=== PATIENT | male | born 1970 | race African-American/Black ===

== ENCOUNTER 2018-11-15 18:46 | Emergency (ER) | payer BC ==
[2018-11-15] MEDS: ONDANSETRON 4 MG INJ IV (19:38)
[2018-11-15] MEDS: SOD CHLORIDE 0.9% 1,000 ML IV (19:39)
[2018-11-15] MEDS: HYDROmorphONE 1 MG/ML SYG IV (19:39)
[2018-11-15 19:41] LABS: ADD MAN DIFF? NO
[2018-11-15 19:47] LABS: BASOPHILS % 0.6 % (0.0-2.0); EOSINOPHILS % 0.9 % (0.0-7.0); HEMATOCRIT 38.5 % (42.0-52.0); HEMOGLOBIN 12.9 g/dl (14.0-18.0); LYMPHOCYTES # 1.6 10^3/ul (0.8-2.9); LYMPHOCYTES % 46.8 % (15.0-51.0); MEAN CORPUSCULAR HEMOGLOBIN 29.1 pg (29.0-33.0); MEAN CORPUSCULAR HGB CONC 33.5 g/dl (32.0-37.0); MEAN CORPUSCULAR VOLUME 86.9 fl (82.0-101.0); MEAN PLATELET VOLUME 9.4 fl (7.4-10.4); MONOCYTE # 0.4 10^3/ul (0.3-0.9); MONOCYTES % 11.8 % (0.0-11.0); NEUTROPHIL # 1.3 10^3/ul (1.6-7.5); NEUTROPHILS % 39.6 % (39.0-77.0); PLATELET COUNT 240 10^3/UL (140-415); RED BLOOD COUNT 4.43 10^6/ul (4.70-6.10)
[2018-11-15 19:47] LABS: WHITE BLOOD COUNT 3.3 10^3/ul (4.8-10.8)
[2018-11-15 20:09] LABS: ALANINE AMINOTRANSFERASE 232 IU/L (13-69); ALBUMIN 3.5 g/dl (3.3-4.9); ALBUMIN/GLOBULIN RATIO 1.06; ALKALINE PHOSPHATASE 133 IU/L (42-121); ANION GAP 5 (5-13); ASPARTATE AMINO TRANSFERASE 401 IU/L (15-46); BILIRUBIN,INDIRECT 0.3 mg/dl (0-1.1); BILIRUBIN,TOTAL 0.3 mg/dl (0.2-1.3); BLOOD UREA NITROGEN 11 mg/dl (7-20); CALCIUM 9.1 mg/dl (8.4-10.2); CARBON DIOXIDE 30 mmol/L (21-31); CHLORIDE 100 mmol/L (97-110); Estimated GFR > 60 mL/min (>60); GLUCOSE 201 mg/dl (70-220); POTASSIUM 4.2 mmol/L (3.5-5.1); SODIUM 135 mmol/L (135-144); TOTAL PROTEIN 6.8 g/dl (6.1-8.1)
[2018-11-15 20:11] LABS: LIPASE < 10 U/L (23-300)
[2018-11-15] MEDS: ONDANSETRON (ODT) 4 MG TAB ODT (20:51)
[2018-11-15] MEDS: HYDROCODONE/APAP (10/325) TAB PO (20:52)
== END 2018-11-15 20:58 | disposition home or self-care (01) ==
LOC: E/R 18:46
DX: K86.1 Other chronic pancreatitis (principal)
CPT/HCPCS: 36415; 80053; 83690; 85025; 96374; 96375; 99284-25

== ENCOUNTER 2018-11-18 05:57 | Emergency (ER) | payer BC ==
[2018-11-18] MEDS: KETOROLAC 30 MG INJ IV (07:34)
[2018-11-18] MEDS: ONDANSETRON 4 MG INJ IV (07:48)
[2018-11-18] MEDS: traMADol 50 MG TAB PO (07:48)
[2018-11-18] MEDS: SOD CHLORIDE 0.9% 1,000 ML IV (07:48)
== END 2018-11-18 08:05 | disposition left against medical advice (07) ==
LOC: FTE 05:57
DX: R10.12 Left upper quadrant pain (principal); R10.13 Epigastric pain
CPT/HCPCS: 36415; 80053; 81003; 83690; 85025; 96374; 99284-25